=== PATIENT | female | born 1985 | race African-American/Black ===

== ENCOUNTER → 2018-01-16 00:01 | Emergency (ER) | payer SELFPAY ==
[~2018-01-16 00:01] MED LIST: LORazepam INJ* 2 MG/ML 1 ML VIAL ONE; Ziprasidone IM INJ* 20 MG/ML VIAL ONE; diPHENhydraMINE IV* 50 MG/ML 1 ml VIAL (BENADRYL) ONE
--- NOTE | 2018-01-16 00:59 | ED ---
Substance Abuse/Use - HPI Summary HPI Summary: This is scribe Graeme Felicianoin documenting for attending Dr. Jorge Lorenzo MD. A 32 y/o female BIBA and BIBP presents to ED s/p belligerent behavior and alcohol intoxication. As per triage, pt brought in by police and ems for etoh and concerns that she cant care for self, pt is 941. pt arrives screaming, swearing, in handcuffs, she is verbally threatening police. unable to verbally redirect pt". In the ED, the patient was very loud, angry and yelling at ED staff and MD. Patient was uncooperative and screaming at police and staff. Patient did not give history and was not answering questions. Patient was being restrained to ED bed due to her abnormal behavior. LEVEL 5 CAVEAT. - History Of Current Complaint Chief Complaint: EDSubstanceAbuse Stated Complaint: 941 Time Seen by Provider: 01/16/18 00:07 - Allergies/Home Medications Home Medications: Home Medications Unobtainable 01/16/18 [History Confirmed 01/16/18] PMH/Surg Hx/FS Hx/Imm Hx Infectious Disease History: No Infectious Disease History: Denies: Traveled Outside the [place] in Last 30 Days Review of Systems Positive: Fever - Unable to obtain ROS because of pt is intoicated. All Other Systems Reviewed And Are Negative: No Physical Exam - Summary Physical Exam Summary: VITAL SIGNS: Reviewed. GENERAL: Patient is a agitated, uncooperative female who is lying comfortable in the stretcher. Patient is not in any acute respiratory distress. Patient had to be sedated and restrained. AOB. HEAD AND FACE: No signs of trauma. No ecchymosis, hematomas or skull depressions. No sinus tenderness. EYES: PERRLA, EOMI x 2, No injected conjunctiva, no nystagmus. EARS: Hearing grossly intact. Ear canals and tympanic membranes are within normal limits. MOUTH: Oropharynx within normal limits. NECK: Supple, trachea is midline, no adenopathy, no JVD, no carotid bruit, no c- spine tenderness, neck with full ROM. CHEST: Symmetric, no tenderness at palpation LUNGS: Clear to auscultation bilaterally. No wheezing or crackles. CVS: Regular rate and rhythm, S1 and S2 present, no murmurs or gallops appreciated. ABDOMEN: Soft, non-tender. No signs of distention. No rebound no guarding, and no masses palpated. Bowel sounds are normal. EXTREMITIES: FROM in all major joints, no edema, no cyanosis or clubbing. NEURO: Alert and oriented x 3. No acute neurological deficits. Speech is normal and follows commands. SKIN: Dry and warm Triage Information Reviewed: Yes Vital Signs On Initial Exam: Initial Vitals Temp Pulse Resp BP Pulse Ox 98.1 F 119 15 119/71 97 01/16/18 00:30 01/16/18 00:30 01/16/18 00:30 01/16/18 00:30 01/16/18 00:30 Vital Signs Reviewed: Yes Diagnostics - Vital Signs Vital Signs Temp Pulse Resp BP Pulse Ox 01/16/18 00:30 98.1 F 119 15 119/71 97 - Laboratory Result Diagrams: 01/16/18 01:47 01/16/18 01:47 Lab Statement: Any lab studies that have been ordered have been reviewed, and results considered in the medical decision making process. Course/Dx - Course Course Of Treatment: A 32 y/o female BIBA and BIBP presents to ED s/p belligerent behavior and alcohol intoxication. No laboratory scans were done. In the ED, the patient recieved no medications. Patient is signed out to Dr. Srinivasan via Dr. Lorenzo, pending sober and reevaluation with a diagnosis of alcohol intoxication. - Diagnoses Provider Diagnoses: Alcohol intoxication Discharge - Sign-Out/Discharge Signing out patient TO: Naresh Srinivasan Receiving patient FROM: Jorge Lorenzo - Discharge Plan Patient Education Materials: Abuse of Alcohol (ED), Abuse of Alcohol (DC)
[2018-01-16 02:05] LABS: Hematocrit 36 % (35-47); Hemoglobin 11.1 g/dl (12.0-16.0); Mean Corpuscular HGB Conc 31 g/dl (31-36); Mean Corpuscular Hemoglobin 22 pg (27-31); Mean Corpuscular Volume 70 fL (80-97); Mean Platelet Volume 8.3 um3 (7.4-10.4); Platelet Count 283 10^3/ul (150-450); Red Blood Count 5.12 10^6/ul (4.00-5.40); Red Cell Distribution Width 19 % (10.5-15); White Blood Count 12.2 10^3/ul (3.5-10.8)
[2018-01-16 02:21] LABS: EGFR Non-African American 85.1 (>60)
[2018-01-16 03:01] LABS: ABS Basophils 0.2 10^3/ul (0-0.2); ABS Eosinophils 0.1 10^3/ul (0-0.6); ABS Monocytes 0.5 10^3/ul (0-0.8); ABS Neutrophils 9.3 10^3/ul (1.5-7.7); ABS Nucleated RBC 0 10^3/ul; Eosinophil % 0.4 % (0-6); Lymphocyte % 16.7 % (25-47); Nucleated Red Blood Cells % 0
--- NOTE | 2018-01-16 07:29 | ED ---
Progress - Progress Note Progress Note: This is johanne Jalen Dominique documenting for attending Narehs Srinivasan MD. A 32 y/o female BIBA and BIBP presents to ED s/p belligerent behavior and alcohol intoxication. Course/Dx - Course Course Of Treatment: Patient is medically cleared 08:30 for [facility]. - Diagnoses Provider Diagnoses: Alcohol intoxication Discharge - Sign-Out/Discharge Documenting (check all that apply): Receiving Sign-Out Receiving patient FROM: Jorge Lorenzo - Pending sobriety - Discharge Plan
[2018-01-16 07:39] VITALS: BP 119/74
== END | disposition home or self-care (01) ==
LOC: ED 00:01
DX: F10.129 Alcohol abuse with intoxication, unspecified (principal)
CPT/HCPCS: 36415; 80053; 80320; 80329; 84443; 84702; 85025; 96372; 96374; 96375; 99285; G0480; J1200; J2060; J3486